=== PATIENT | male | born 1965 | race Two or more races ===

== ENCOUNTER 2021-04-20 17:37 | Emergency (ER) | payer SELFPAY ==
[~2021-04-20] VITALS: Ht 172.7 cm; Wt 68.0 kg
[2021-04-20] MEDS ORDERED: LEXAPRO (18:14)
[2021-04-20 19:08] LABS: *AMPHETAMINES SCREEN URINE PRESUMTIVE POSITIVE (NEGATIVE); *BARBITURATES SCREEN URINE NEGATIVE (NEGATIVE); *BENZODIAZEPINES SCREEN URINE NEGATIVE (NEGATIVE)
[2021-04-20 19:09] LABS: *COCAINE SCREEN URINE NEGATIVE (NEGATIVE); CANNABINOID URINE SCREEN NEGATIVE (NEGATIVE); METHADONE URINE SCREEN NEGATIVE (NEGATIVE); OPIATES URINE SCREEN NEGATIVE (NEGATIVE); PHENCYCLIDINE URINE SCREEN NEGATIVE (NEGATIVE)
[2021-04-20 23:32] LABS: BASOPHILS % 0.8 % (0.0-2.0); EOSINOPHILS % 0.8 % (0.0-5.0); HEMATOCRIT. 43.7 % (42.0-52.0); LYMPHOCYTES % 19.8 % (20.0-50.0); MEAN CORPUSCULAR HEMOGLOBIN 32.3 pg (28.0-32.0); MEAN CORPUSCULAR VOLUME 94.5 fL (80.0-94.0); MEAN PLATELET VOLUME 6.7 fl (7.4-10.4); MONOCYTES % 6.1 % (2.0-8.0); NEUTROPHILS % 72.5 % (40.0-76.0); PLATELET 363 x1000/uL (130-400); RED BLOOD CELL COUNT 4.63 mill/uL (4.7-6.1); RED CELL DISTRIBUTION WIDTH 14.1 % (11.6-14.6)
[2021-04-20 23:40] LABS: CHLORIDE 108 mEq/L (98-107)
[2021-04-20 23:44] LABS: ETHANOL BLOOD < 10 mg/dL
[2021-04-21] MEDS ORDERED: RISPERIDONE 1MG TABLET PO SCH (09:00)
[2021-04-21 11:31] VITALS: BP 101/62
== END 2021-04-21 11:32 | disposition home or self-care (01) ==
LOC: ER 17:37
DX: T43.621A Poisoning by amphetamines, accidental (unintentional), initial encounter (principal); G93.40 Encephalopathy, unspecified; F17.290 Nicotine dependence, other tobacco product, uncomplicated; I49.9 Cardiac arrhythmia, unspecified; Z20.822 Contact with and (suspected) exposure to COVID-19; Y92.9 Unspecified place or not applicable
CPT/HCPCS: 36415; 80053; 80305; 80307; 80320; 80329; 85025; 87426; 93005; 99285; 99406; G0480